=== PATIENT | female | born 1980 | race Caucasian/White ===

== ENCOUNTER 2018-03-12 22:14 | Emergency (ER) | payer OTHER ==
[2018-03-12 22:14] VITALS: BMI 29.2
[2018-03-12 23:21] VITALS: BP 129/80; PULSE 75; RESP 15; TEMP 98; O2SAT 97
--- NOTE | 2018-03-12 23:33 | ED PDOC ---
HPI: CCC, URI, Sore Throat Time Seen by Provider: 03/12/18 22:36 Chief Complaint (Nursing): ENT Problem History Per: Patient History/Exam Limitations: no limitations Additional Complaint(s): 37-year-old female complaining of discomfort and clogged sensation to her left ear. Patient states she saw her PMD recently and was given a prescription for eardrops, acetic acid, which she has been instilling into her left ear without improvement of symptoms. Denies any fever, cough, URI symptoms, headache, rash, sore throat. Has no other complaints. Past Medical History Vital Signs: Last Vital Signs Temp 98 F 03/12/18 23:17 Pulse 75 03/12/18 23:17 Resp 15 03/12/18 23:17 BP 129/80 03/12/18 23:17 Pulse Ox 97 03/12/18 23:39 - Medical History PMH: Hypothyroidism Denies: Chronic Kidney Disease - Surgical History Surgical History: - Family History Family History: States: Unknown Family Hx - Immunization History Hx Tetanus Toxoid Vaccination: No Hx Influenza Vaccination: No Hx Pneumococcal Vaccination: No - Home Medications Home Medications: Ambulatory Orders Medication Instructions Recorded Methylergonovine Maleate 0.2 mg PO Q8 #6 tab 10/29/14 [Methergine] Albuterol [Proventil] 0.09 2 IH Q6 PRN #1 inhaler 11/04/15 Azithromycin [Zithromax Z-Landon] 250 mg PO DAILY #1 tab 11/04/15 Promethazine/Phenyleph/Codeine 2 tsp PO Q6 PRN #0 syr 11/04/15 [Promethazine Vc W/ Codeine 120 ml] - Allergies Allergies/Adverse Reactions: Allergies Allergy/AdvReac Type Severity Reaction Status Date / Time No Known Allergies Allergy Verified 09/14/14 00:53 Review of Systems Constitutional: Negative for: Fever, Malaise ENT: Positive for: Ear Pain. Negative for: Ear Discharge, Nose Pain, Nose Discharge, Nose Congestion Respiratory: Negative for: Cough, Shortness of Breath Skin: Negative for: Rash, Lesions Physical Exam - Physical Exam Comments: GENERAL APPEARANCE: Patient is awake, alert, oriented x 3, in no acute distress. SKIN: Warm, dry; (-) cyanosis. ENMT: Canals : (+) cerumen impaction to the L ear, R ear is clear and wnl, TMs: (-) TM bulging and (-) erythema of the R TM, L TM not visible. Frontal / maxillary sinuses : (-) tenderness. (-) TMJ tenderness. Pharynx: Clear; (-) erythema, (-) exudate. Airway patent: (-) stridor. NECK: (-) stiffness, (-) tenderness, (-) lymphadenopathy. LUNGS: clear, (-) wheezing, (-) rhonchi. CARDIAC: RRR, (-) murmurs, (-) gallops. - ECG O2 Sat by Pulse Oximetry: 97 Medical Decision Making Medical Decision Making: Impression : cerumen impaction Plan : - NS irrigation of cerumen impaction L ear L ear irrigated with NS and peroxide mixture. Cerumen removed entirely, L TM intact. Patient tolerated the procedure well. Advised to follow up with primary care physician and ENT referral provided in 1- 2 days without fail. Return to the emergency room at any time for any new or worsening symptoms. Patient states she fully agrees with and understands discharge instructions. States that she agrees with the plan and disposition. Verbalized and repeated discharge instructions and plan. I have given the patient opportunity to ask any additional questions. Disposition - Clinical Impression Clinical Impression: Cerumen impaction - Patient ED Disposition Is Patient to be Admitted: No Counseled Patient/Family Regarding: Diagnosis, Need For Followup - Disposition Referrals: Humberto Weathers MD [Staff Provider] - Disposition: Routine/Home Disposition Time: 00:00 Condition: STABLE Additional Instructions: Thank you for letting us take care of you today. You were treated for cerumen impaction left ear. The emergency medical care you received today was directed at your acute symptoms. Return to the Emergency Department if your symptoms worsen, do not improve, or if you have any other problems. Please contact your doctor in 2 days for re-evaluation and follow up / or call one of the physicians/clinics you have been referred to that are listed on the Patient Visit Information form that is included in your discharge packet. Bring any paperwork you were given at discharge with you along with any medications you are taking to your follow up visit. Our treatment cannot replace ongoing medical care by a primary care provider (PCP) outside of the emergency department. Thank you for allowing the [facility] team to be part of your care today. Instructions: Ear Wax Impaction Forms: [employer] (Swedish) - PA / LEAD MEDICAL TECHNOLOGIST / Resident Statement MD/DO has reviewed & agrees with the documentation as recorded.
== END 2018-03-13 00:30 | disposition home or self-care (01) ==
LOC: H.ER 22:14
DX: H61.22 Impacted cerumen, left ear (principal); E03.9 Hypothyroidism, unspecified

== ENCOUNTER 2018-04-01 19:55 | Emergency (ER) | payer OTHER ==
[2018-04-01 19:55] VITALS: BMI 29.2
[2018-04-01] MEDS ORDERED: Albuterol 0.083% Inhal Sol (2.5 mg/3 mL) UD INH STA (20:27)
[2018-04-01 20:59] LABS: BASO # 0.1 K/uL (0.0-0.2); BASO % 0.6 % (0.0-2.0); EOS # 0.2 K/uL (0.0-0.7); EOS % 2.1 % (0.0-4.0); HEMOGLOBIN 11.2 g/dL (12.0-16.0); LYMPH # 1.5 K/uL (1.0-4.3); LYMPH % 16.1 % (20.0-40.0); MEAN CELL VOLUME 82.3 fl (81.0-99.0); MEAN CORPUSCULAR HEMOGLOBIN 27.5 pg (27.0-31.0); MEAN CORPUSCULAR HGB CONC 33.5 g/dL (33.0-37.0); MEAN PLATELET VOLUME 8.1 fl (7.2-11.7); MONO # 0.6 K/uL (0.0-0.8); NEUT % 75.2 % (50.0-75.0); RBC 4.06 Mil/uL (3.80-5.20); RED CELL DISTRIBUTION WIDTH 14.7 % (11.5-14.5); WHITE BLOOD COUNT 9.3 K/uL (4.8-10.8)
[2018-04-01 21:07] LABS: ALB/GLOB RATIO 1.1 (1.0-2.1); ALBUMIN 3.8 g/dL (3.5-5.0); ALT/SGPT 35 U/L (9-52); AST/SGOT 19 U/L (14-36); BLOOD UREA NITROGEN 9 mg/dl (7-17); GFR AFRICAN-AMERICAN > 60; GFR NON-AFRICAN AMERICAN > 60
--- NOTE | 2018-04-01 21:11 | ED PDOC ---
HPI: SOB/CHF/COPD Time Seen by Provider: 04/01/18 20:19 Chief Complaint (Nursing): Shortness Of Breath Chief Complaint (Provider): SOB, cough, no fever History Per: Patient Onset/Duration Of Symptoms: Days (3x) Current Symptoms Are (Timing): Still Present Additional Complaint(s): 37 yo female reports SOB when coughing for 3 days. Pt states she is also having green phlegm. Right flank pain when urinating today. PT denies flank pain at rest. No N/V/D. Past Medical History Vital Signs: Last Vital Signs Temp 98.3 F 04/02/18 00:27 Pulse 87 04/02/18 00:27 Resp 16 04/02/18 00:27 BP 136/79 04/02/18 00:27 Pulse Ox 96 04/06/18 17:38 - Medical History PMH: Hypothyroidism Denies: Chronic Kidney Disease - Surgical History Surgical History: - Family History Family History: States: Unknown Family Hx - Immunization History Hx Tetanus Toxoid Vaccination: No Hx Influenza Vaccination: No Hx Pneumococcal Vaccination: No - Home Medications Home Medications: Ambulatory Orders Medication Instructions Recorded Methylergonovine Maleate 0.2 mg PO Q8 #6 tab 10/29/14 [Methergine] Albuterol [Proventil] 0.09 2 IH Q6 PRN #1 inhaler 11/04/15 Azithromycin [Zithromax Z-Landon] 250 mg PO DAILY #1 tab 11/04/15 Promethazine/Phenyleph/Codeine 2 tsp PO Q6 PRN #0 syr 11/04/15 [Promethazine Vc W/ Codeine 120 ml] Albuterol 0.083% [Albuterol 3 ml IH Q4 #100 neb 04/02/18 Sulfate 3 Ml] Guaifenesin [Adult Tussin Chest 200 mg PO Q6H PRN #200 ml 04/02/18 Congestion] Nebulizer [Aeroeclipse II] 1 each MC DAILY #1 each 04/02/18 - Allergies Allergies/Adverse Reactions: Allergies Allergy/AdvReac Type Severity Reaction Status Date / Time No Known Allergies Allergy Verified 09/14/14 00:53 Physical Exam - Reviewed Nursing Documentation Reviewed: Yes Vital Signs Reviewed: Yes - Physical Exam Appears: Positive for: Well, Non-toxic, No Acute Distress Head Exam: Positive for: ATRAUMATIC, NORMAL INSPECTION, NORMOCEPHALIC Skin: Positive for: Normal Color, Warm, DRY Eye Exam: Positive for: Normal appearance ENT: Positive for: Normal ENT Inspection Neck: Positive for: Normal, Painless ROM Cardiovascular/Chest: Positive for: Regular Rate, Rhythm Respiratory: Positive for: CNT, Normal Breath Sounds Gastrointestinal/Abdominal: Positive for: Normal Exam, Soft Back: Positive for: Normal Inspection Extremity: Positive for: Normal ROM Neurologic/Psych: Positive for: Alert, Oriented - Laboratory Results Result Diagrams: 04/01/18 20:50 04/01/18 20:50 - ECG O2 Sat by Pulse Oximetry: 96 (RA) Pulse Ox Interpretation: Normal Medical Decision Making Medical Decision Making: Endorsed pending CXR, CBC and urine. Disposition - Clinical Impression Clinical Impression: Bronchitis - Disposition Disposition Time: 20:00 Condition: IMPROVED Additional Instructions: Thank you for letting us take care of you today. You were treated for acute bronchitis. The emergency medical care you received today was directed at your acute symptoms. If you were prescribed any medication, please fill it and take as directed. It may take several days for your symptoms to resolve. Return to the Emergency Department if your symptoms worsen, do not improve, or if you have any other problems. Please contact your doctor in 2 days for re-evaluation and follow up / or call one of the physicians/clinics you have been referred to that are listed on the Patient Visit Information form that is included in your discharge packet. Bring any paperwork you were given at discharge with you along with any medications you are taking to your follow up visit. Our treatment cannot replace ongoing medical care by a primary care provider (PCP) outside of the emergency department. Thank you for allowing the [facility] team to be part of your care today. Prescriptions: Albuterol 0.083% [Albuterol Sulfate 3 Ml] 3 ml IH Q4 #100 neb Guaifenesin [Adult Tussin Chest Congestion] 200 mg PO Q6H PRN #200 ml PRN Reason: Cough Nebulizer [Aeroeclipse II] 1 each MC DAILY #1 each Instructions: Acute Bronchitis Forms: [employer] (Vincentian)
[2018-04-01 21:22] LABS: SQUAMOUS EPITHIAL 1 /hpf (0-5); URINE BACTERIA RARE (<OCC); URINE BILIRUBIN NEGATIVE (NEGATIVE); URINE BLOOD NEGATIVE (NEGATIVE); URINE CLARITY CLEAR (Clear); URINE COLOR STRAW (YELLOW); URINE GLUCOSE (UA) NEG (Normal); URINE LEUKOCYTE ESTERASE NEG Leu/uL (Negative); URINE PROTEIN NEGATIVE (NEGATIVE); URINE UROBILINOGEN 0.2-1.0 mg/dL (0.2-1.0)
--- NOTE | 2018-04-02 00:13 | ED PDOC ---
- Laboratory Results Result Diagrams: 04/01/18 20:50 04/01/18 20:50 - ECG O2 Sat by Pulse Oximetry: 96 Medical Decision Making Medical Decision Making: Case endorsed to me by JAVI Nelson pending labs, CXR at 2100. Labs reviewed : wbc wnl, cmp wnl, ua (-). CXR : NAD, as read by JAVI. VS T 98.3 P 87 BP 136/79 R 16 On re-evaluation, patient reports improvement of symptoms, denies any CP, SOB. She adds that she has a h/o environmental allergies, she has been cleaning and moving out of her house and has been exposed to alot of dust. On exam, patient remains AAOx3, in no acute distress. Lungs clear to auscultation, cardiac RRR, abdomen soft, non-tender, repeat neuro exam shows no focal findings. Diagnostic results d/w the patient in great detail. Diagnosis of possible bronchitis with allergies d/w the patient. Based on history, exam and diagnostic results, plan will be for outpatient follow up. Patient instructed to follow-up with pmd in 1-2 days without fail. Advised to take medication as prescribed and otc zyrtec. Return to the emergency room at any time for any new or worsening symptoms. Patient states she fully agrees with and understands discharge instructions. States that she agrees with the plan and disposition. Verbalized and repeated discharge instructions and plan. I have given the patient opportunity to ask any additional questions. Disposition Counseled Patient/Family Regarding: Studies Performed, Diagnosis, Need For Followup, Rx Given - Clinical Impression Clinical Impression: Bronchitis - POA Present On Arrival: None - Disposition Disposition: Routine/Home Disposition Time: 00:00 Condition: IMPROVED Additional Instructions: Thank you for letting us take care of you today. You were treated for acute bronchitis. The emergency medical care you received today was directed at your acute symptoms. If you were prescribed any medication, please fill it and take as directed. It may take several days for your symptoms to resolve. Return to the Emergency Department if your symptoms worsen, do not improve, or if you have any other problems. Please contact your doctor in 2 days for re-evaluation and follow up / or call one of the physicians/clinics you have been referred to that are listed on the Patient Visit Information form that is included in your discharge packet. Bring any paperwork you were given at discharge with you along with any medications you are taking to your follow up visit. Our treatment cannot replace ongoing medical care by a primary care provider (PCP) outside of the emergency department. Thank you for allowing the [facility] team to be part of your care today. Prescriptions: Albuterol 0.083% [Albuterol Sulfate 3 Ml] 3 ml IH Q4 #100 neb Guaifenesin [Adult Tussin Chest Congestion] 200 mg PO Q6H PRN #200 ml PRN Reason: Cough Nebulizer [Aeroeclipse II] 1 each MC DAILY #1 each Instructions: Acute Bronchitis Forms: [employer] (Georgian) - PA / TANNING WHEEL FILLER / Resident Statement MD/DO has reviewed & agrees with the documentation as recorded.
[2018-04-02 00:28] VITALS: BP 136/79; PULSE 87; RESP 16; TEMP 98.3
[2018-04-02 03:33] VITALS: O2SAT 96
--- NOTE | 2018-04-02 14:07 | RAD ---
HISTORY: cough, SOB COMPARISON: 11/04/2015 TECHNIQUE: Chest PA and lateral FINDINGS: LUNGS: No active pulmonary disease. PLEURA: No significant pleural effusion identified. No pneumothorax apparent. CARDIOVASCULAR: Normal. OSSEOUS STRUCTURES: No significant abnormalities. VISUALIZED UPPER ABDOMEN: Normal. OTHER FINDINGS: None. IMPRESSION: No active disease.
== END 2018-04-02 00:28 | disposition home or self-care (01) ==
LOC: H.ER 19:55
DX: J40 Bronchitis, not specified as acute or chronic (principal); E03.9 Hypothyroidism, unspecified